=== PATIENT | female | born 1955 | race Caucasian/White ===

== ENCOUNTER 2016-11-03 07:09 | Inpatient (IN) | payer OTHER ==
[2016-10-25 09:30] VITALS: BMI 24.0
--- NOTE | 2016-10-25 10:02 | PAT Medication Instructions ---
Service Date Oct 25, 2016. Current Home Medication List Amitriptyline Hcl (Elavil), 50 MG PO HS Aripiprazole (Abilify), 15 MG PO QAM Aspirin (Aspirin), 81 MG PO QAM Atorvastatin Calcium (Lipitor), 80 MG PO HS Gabapentin (Neurontin), 400 MG PO BID Ibuprofen (Motrin), 800 MG PO TID Lamotrigine (Lamictal), 200 MG PO HS Levothyroxine Sodium (Levothyroxine Sodium), 1 TAB PO QAM Omeprazole (Prilosec), 40 MG PO QAM Pregabalin (Lyrica), 100 MG PO BID Sertraline (Zoloft), 200 MG PO QAM Medication Instructions For Your Scheduled Surgery - Instructions per surgeon: Aspirin (Aspirin), 81 MG PO QAM Ibuprofen (Motrin), 800 MG PO TID - Take the following medications the morning of surgery with a sip of water OTHERWISE NOTHING TO EAT OR DRINK AFTER MIDNIGHT: Levothyroxine Sodium (Levothyroxine Sodium), 1 TAB PO QAM Aripiprazole (Abilify), 15 MG PO QAM Gabapentin (Neurontin), 400 MG PO BID Omeprazole (Prilosec), 40 MG PO QAM Sertraline (Zoloft), 200 MG PO QAM Pregabalin (Lyrica), 100 MG PO BID - Take the following medications as scheduled the night before surgery: Amitriptyline Hcl (Elavil), 50 MG PO HS Atorvastatin Calcium (Lipitor), 80 MG PO HS Lamotrigine (Lamictal), 200 MG PO HS Gabapentin (Neurontin), 400 MG PO BID Pregabalin (Lyrica), 100 MG PO BID If you have any questions please call us at [phone] or [phone] or [phone]
[2016-10-25 11:10] LABS: URINE APPEARANCE CLEAR (CLEAR); URINE BILIRUBIN NEG (NEG); URINE COLOR YELLOW; URINE NITRITE NEG (NEG); URINE PH 5.5 (4.5-7.5); URINE SPECIFIC GRAVITY 1.007 (1.000-1.030); UROBILINOGEN NEG (NEG)
[2016-10-25 11:10] LABS: BUN/CREATININE RATIO 20.4 (10-20); CALCIUM 8.4 mg/dl (8.5-10.1); CREATININE 0.69 mg/dl (0.60-1.20); POTASSIUM 4.1 mmol/L (3.5-5.1)
[2016-10-25 11:18] LABS: MANUAL MICROSCOPIC REQUIRED? NO; REVIEW REQ? NO
--- NOTE | 2016-10-26 13:23 | HISTORY & PHYSICAL EXAMINATION ---
DATE OF ADMISSION: 11/03/2016 CHIEF COMPLAINT: Neck and bilateral shoulder pain. 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 She reports chronic axial neck pain, radiates from the shoulders down the arm and occasionally transient tingling in the hands. Imaging reveals no ongoing spinal cord compression, but revealed osteophyte formation and kyphosis in the previously operated area. She has been through years of conservative treatment including physical therapy, massage and epidural injections without any resolution of her symptoms. Quality of life is severely curtailed. She denies incontinence or current myelopathic symptoms. She denies any misti or overt weakness. PAST MEDICAL HISTORY: Arthritis, depression, fibromyalgia, high cholesterol, migraines, spinal stenosis, thyroid disease. PAST SURGICAL HISTORY: Cervical laminectomy C5 and C6, colonoscopy. ALLERGIES: None. SOCIAL HISTORY: The patient lives alone. She is a former alcohol user. Current smoker. FAMILY HISTORY: Notable for cancer, hypertension, high cholesterol, thyroid disease. REVIEW OF SYSTEMS: Notable for fatigue and subjective weakness. She denies chest pain, shortness of breath, dyspnea on exertion. She has a history of headaches, vertigo, as well as depression and insomnia. She denies any incontinence. MEDICATIONS: Refer on the list. PHYSICAL EXAMINATION: The patient stands 5 feet 5 inches tall, weighs 141 pounds, stands and ambulates without ataxia. She has normal affect. Answers questions appropriately. She has full cervical range of motion with mild discomfort on range of motion but a negative Lhermitte's. She has no cervical lymphadenopathy, thyromegaly. Cardiac auscultation reveals a regular rate and rhythm. Lungs are clear to auscultation bilaterally. Extremity evaluation reveals normal skin, full active range of motion of both upper extremities and palpable radial pulses. Neurologic exam reveals 5/5 strength in both upper extremities in all motor groups. Intact sensation to light touch in all distributions in the upper extremities and symmetric. Normal DTRs at biceps, triceps and brachioradialis. She has a negative Catalina's bilaterally. Lower extremities show no clonus. Posterior skin in the neck reveals midline scar. IMAGING: Cervical imaging including flexion, extension radiographs reveals well preserved flexibility with prior laminectomies noted in the lower cervical spine. With cervical extension she is able to actively restore normal cervical lordosis. There is no significant ongoing neurologic compression in the MRI. ASSESSMENT AND PLAN: The patient has neck pain due to post-laminectomy kyphosis and degenerative changes. We reviewed the ability of posterior stabilization and fusion to restore lordosis without osteotomy given her flexibility. Likely of neck pain improving was reviewed. She would like to proceed. I recommend C4-C7 posterior fusion with possible inclusion of C3 or T1 as needed based upon stability and alignment. The patient was agreeable to proceed, understanding that some axial neck pain may persist.
[2016-11-03] VITALS (9 sets, daily range): BP systolic 108–124; BP diastolic 70–83; PULSE 72–99; TEMP 36.6–36.9; O2SAT 92–98; Ht 165.1 cm; Wt 67.2 kg
[~2016-11-03] VITALS: Ht 165.1 cm; Wt 67.2 kg
[~2016-11-03 07:09] MED LIST: ABL/15 PO; AMT50 PO; ASPI-461 PO; ATOR80TA PO; CEFAZOLIN 2000 MG/60 ML D5W IV SCH; CeleBREX 200 MG CAP PO SCH; GABA1CAP5 PO; IBUP-1428 PO; LACTATED RINGER'S 1000ML 1,000 ML IV SCH; LAMO200T PO; LEVO88TA3 PO; PREG100C PO; PREGABALIN 75 MG CAP PO SCH; PRLSR20 PO; SERT-234 PO
[2016-11-03] MEDS ORDERED: FENTANYL CITRATE INJ 50 MCG/1 ML 2 ML VIAL ONE ×3 (08:19→10:44)
[2016-11-03] MEDS ORDERED: MIDAZOLAM HCL 1 MG/ML 2ML VIAL ONE (08:19)
[2016-11-03] MEDS ORDERED: REMIFENTANIL 1 MG VIAL ONE (08:20)
--- NOTE | 2016-11-03 08:42 | History & Physical Bridge Note ---
H&P Re-Evaluation Bridge Note: I have examined the patient, reviewed the History & Physical and in the interval since the performance of the History & Physical I have noted the following changes of clinical significance: No changes noted
[2016-11-03] MEDS ORDERED: THROMBIN 5000 UNITS KIT ONE (08:52)
[2016-11-03] MEDS ORDERED: THROMBIN FOR SOLN 20000 UNIT KIT ONE (08:52)
[2016-11-03] MEDS ORDERED: HEPARIN SOD (PORCINE) 1000 UNIT/ML 10 ML VIAL ONE (08:52)
[2016-11-03] MEDS ORDERED: BUPIVACAINE/EPINEPHRINE 0.25% 1:200,000 30 ML VIAL ONE (08:53)
[2016-11-03] MEDS ORDERED: BACITRACIN 50000 UNIT VIAL ONE (08:53)
[2016-11-03] MEDS ORDERED: HYDROmorphone INJ 2 MG/ML SYR/VIAL ONE ×3 (09:52→11:34)
[2016-11-03] MEDS ORDERED: EpHEDrine SULFATE INJ 50 MG/ML AMP IV PRN (10:15)
[2016-11-03] MEDS ORDERED: ONDANSETRON INJ 2 MG/ML 2 ML VIAL IV PRN ×2 (10:15→11:00)
[2016-11-03] MEDS ORDERED: ATROPINE SULFATE 0.1 MG/ML 5ML SYR IV PRN (10:15)
--- NOTE | 2016-11-03 10:43 | [facility] Post Operative Brief Note ---
Immediate Operative Summary Operative Date Nov 03, 2016. Pre-Operative Diagnosis Post Laminectomy Kyphosis Post-Operative Diagnosis same as preop Procedure(s) Performed C3-7 Posterior Cervical fusion with Instrumentation, use of Infuse, Spinal Cord Monitoring Surgeon DR.J. YU Visitor Services Technician Surgeon(s) Abdi PAPPAS PAC Estimated Blood Loss 40ml Findings dict Specimens NONE
[2016-11-03] MEDS ORDERED: LIDOCAINE HCL 2% 2 ML VIAL (20MG/ML) ONE (10:48)
[2016-11-03] MEDS ORDERED: SUCCINYLCHOLINE 100MG/5ML SYR IV ONE (10:48)
[2016-11-03] MEDS ORDERED: DEXAMETHASONE SOD INJ 4 MG/ML VIAL ONE (10:48)
[2016-11-03] MEDS ORDERED: ONDANSETRON INJ 2 MG/ML 2 ML VIAL ONE ×2 (10:48→10:49)
[2016-11-03] MEDS ORDERED: PROPOFOL IV EMULSION 10 MG/ML 20 ML VIAL IV ONE (10:48)
[2016-11-03] MEDS ORDERED: PHENYLEPHRINE 100MCG/ML 5ML SYR ONE (10:49)
[2016-11-03] MEDS ORDERED: EpHEDrine SULFATE 50MG/5ML SYR ONE (10:49)
[2016-11-03] MEDS ORDERED: ACETAMINOPHEN 325 MG TAB PO PRN (11:00)
[2016-11-03] MEDS ORDERED: LORAZEPAM 1 MG TAB PO PRN (11:00)
[2016-11-03] MEDS ORDERED: HYDROmorphone INJ 1 MG/ML SYR IV PRN (11:00)
[2016-11-03] MEDS ORDERED: LORAZEPAM INJ 1 MG in SYRINGE 0 ML IV PRN (11:00)
[2016-11-03] MEDS: FENTANYL CITRATE INJ 50 MCG/1 ML 2 ML VIAL IV PRN ×4 (11:10→11:25)
[2016-11-03] MEDS: HYDROmorphone INJ 1 MG/ML SYR IV PRN ×4 (11:32→11:47)
--- NOTE | 2016-11-03 11:39 | DIAGNOSTIC IMAGING REPORT ---
CERVICAL 2 OR 3 VIEWS CLINICAL HISTORY: C4-C7 ACDF COMPARISON STUDY: No previous studies for comparison. Fluoroscopy time: 7 seconds. FINDINGS: 2 fluoroscopic images of the cervical spine were obtained. These images demonstrate posterior fusion from C3 through C7. IMPRESSION: Fluoroscopic images demonstrate a C3-C7 posterior fusion. Electronically signed by: Simón Dunn M.D. 11/03/2016 11:37 AM Dictated Date/Time: 11/03/2016 11:36 AM
--- NOTE | 2016-11-03 12:04 | Anesthesiology Progress Note ---
Anesthesia Post Op Note Date & Time Nov 03, 2016 at 12:04 Vital Signs Pain Intensity: 4 Vital Signs Past 12 Hours Date Time Temp Pulse Resp B/P (MAP) Pulse Ox O2 Delivery O2 Flow Rate FiO2 11/03/16 11:55 97 16 134/94 95 Nasal Cannula 2 11/03/16 11:45 97 16 129/90 95 Nasal Cannula 2 11/03/16 11:35 96 16 147/99 97 Nasal Cannula 2 11/03/16 11:25 97 16 134/90 99 Oxymask 10 11/03/16 11:15 36.4 98 16 146/90 100 Oxymask 10 11/03/16 11:05 36.4 90 16 157/80 100 Oxymask 10 11/03/16 08:04 36.8 73 20 118/79 94 Room Air Notes Mental Status: alert / awake / arousable, participated in evaluation Pt Amnestic to Procedure: Yes Nausea / Vomiting: adequately controlled Pain: adequately controlled Airway Patency, RR, SpO2: stable & adequate BP & HR: stable & adequate Hydration State: stable & adequate Anesthetic Complications: no major complications apparent
[2016-11-03] MEDS: SODIUM CHLORIDE 0.9% 1000ML 1,000 ML IV SCH ×2 (13:37→23:04)
[2016-11-03] MEDS: OXYCODONE/ACETAMINOPHEN 5-325 TAB PO PRN ×3 (14:30→23:04)
[2016-11-03] MEDS: CEFAZOLIN IV 1,000 MG in DEXTROSE 5% 50ML 50 ML IV SCH (16:34)
[2016-11-03] MEDS: DEXAMETHASONE INJ 6 MG in SYRINGE 0 ML IV SCH (16:35)
[2016-11-03] MEDS: GABAPENTIN 400 MG CAP PO SCH (20:15)
[2016-11-03] MEDS: PREGABALIN 100 MG CAP PO SCH (20:15)
[2016-11-03] MEDS: ATORVASTATIN 40 MG TAB PO SCH (20:16)
[2016-11-03] MEDS: AMITRIPTYLINE HCL 50 MG TAB PO SCH (20:17)
[2016-11-04] MEDS: DEXAMETHASONE INJ 6 MG in SYRINGE 0 ML IV SCH ×2 (00:10→07:39)
[2016-11-04] MEDS: CEFAZOLIN IV 1,000 MG in DEXTROSE 5% 50ML 50 ML IV SCH ×2 (00:11→07:39)
[2016-11-04] MEDS: OXYCODONE/ACETAMINOPHEN 5-325 TAB PO PRN ×4 (03:00→20:43)
[2016-11-04 03:40] VITALS: BP 116/75; PULSE 72; TEMP 36.7; O2SAT 95
[2016-11-04] MEDS: LEVOTHYROXINE 88 MCG TAB PO SCH (05:36)
[2016-11-04 07:13] VITALS: BP 118/77; PULSE 68; TEMP 36.7; O2SAT 92
[2016-11-04] MEDS: SERTRALINE HCL 100 MG TAB PO SCH (08:31)
[2016-11-04] MEDS: PREGABALIN 100 MG CAP PO SCH ×2 (08:31→20:45)
[2016-11-04] MEDS: ARIPIprazole TAB 15 MG TAB PO SCH (08:31)
[2016-11-04] MEDS: GABAPENTIN 400 MG CAP PO SCH ×2 (08:31→20:43)
--- NOTE | 2016-11-04 10:26 | Anesthesiology Progress Note ---
Anesthesia Post Op Note Date & Time Nov 04, 2016 at 10:26 Vital Signs Vital Signs Past 12 Hours Date Time Temp Pulse Resp B/P (MAP) Pulse Ox O2 Delivery O2 Flow Rate FiO2 11/04/16 07:13 36.7 68 18 118/77 (91) 92 Room Air 11/04/16 07:10 Room Air 11/04/16 03:40 36.7 72 16 116/75 (89) 95 Room Air 11/03/16 23:07 36.7 72 16 111/72 (85) 92 Room Air Notes Mental Status: alert / awake / arousable, participated in evaluation Pt Amnestic to Procedure: Yes Nausea / Vomiting: adequately controlled Pain: adequately controlled Airway Patency, RR, SpO2: stable & adequate BP & HR: stable & adequate Hydration State: stable & adequate Anesthetic Complications: no major complications apparent
[2016-11-04 10:53] VITALS: BP 107/71; PULSE 61; TEMP 36.7; O2SAT 94
[2016-11-04] MEDS: SODIUM CHLORIDE 0.9% 1000ML 1,000 ML IV SCH (11:33)
--- NOTE | 2016-11-04 12:14 | Orthopedic Progress Note ---
Orthopedic Progress Note Date of Service Nov 04, 2016. Subjective Post OP Day: 1 Reports: feeling well, pain controlled w PO medications, Denies: complaints, chest pain, SOB, nausea / vomiting, light headedness, calf pain, using RETAIL AIDE Objective calves soft nontender, N/V intact, dressing C/D/I, A&O x3, hemovac drainage Date Time Temp Pulse Resp B/P (MAP) Pulse Ox O2 Delivery O2 Flow Rate FiO2 11/04/16 10:53 36.7 61 16 107/71 (83) 94 Room Air 11/04/16 07:13 36.7 68 18 118/77 (91) 92 Room Air 11/04/16 07:10 Room Air 11/04/16 03:40 36.7 72 16 116/75 (89) 95 Room Air 11/03/16 23:07 36.7 72 16 111/72 (85) 92 Room Air 11/03/16 20:04 36.9 78 16 108/70 (83) 95 Room Air 11/03/16 20:00 Room Air 11/03/16 15:25 36.7 89 16 117/76 (90) 96 Nasal Cannula 3.0 11/03/16 14:25 94 18 123/78 (93) 96 11/03/16 13:39 Nasal Cannula 4.0 11/03/16 13:30 36.6 89 18 122/82 (95) 98 Nasal Cannula 4.0 11/03/16 13:00 93 18 114/79 (91) 96 11/03/16 12:44 95 Nasal Cannula 4.0 11/03/16 12:20 36.9 99 16 124/83 (97) 96 Nasal Cannula 4.0 Assessment & Plan Assessment: stable cont drain d/c tomorrow
[2016-11-04] MEDS ORDERED: OXYC-57 PO (12:20)
--- NOTE | 2016-11-04 12:21 | Discharge Instructions ---
Discharge Instructions Date of Service Nov 04, 2016. Admission Reason for Admission: Cervical Spinal Stenosis Discharge Discharge Diagnosis / Problem: same Discharge Goals Goal(s): Decrease discomfort Activity Recommendations Activity Limitations: per Instructions/Follow-up section . Instructions / Follow-Up Instructions / Follow-Up ACTIVITY RECOMMENDATIONS: SELF CARE INSTRUCTIONS AFTER CERVICAL FUSIONS 1. No smoking. Smoking drastically decreases the chance of a solid fusion. 2. No bending, lifting more than 5 pounds, or twisting (roll like a log when turning in bed). 3. You may shower 3 days after surgery. Thoroughly dry wound. Do not soak in the tub. 4. Cervical collar: Must be worn at all times including sleeping. You may remove the brace only to bath, eat and if you are sitting in a recliner. 5. Please walk as much as you can for exercise. Gradually increase the distance that you walk as your endurance increases. SPECIAL CARE INSTRUCTIONS: VERY IMPORTANT TO READ AND REVIEW A. Do not take any anti-inflammatory medications (i.e. Indocin, Advil, Aspirin, Naprosyn, Aleve, Motrin, etc.) as these may inhibit the chance of a solid fusion. Tylenol is okay to take. C. Complications are uncommon, but please contact us if you have any signs or symptoms of: 1. wound infection (fever higher than 102.5 degrees F, redness, separation of wound, drainage, or increasing pain from the incision) 2. blood clots in legs (pain, swelling, redness and warmth in legs) 3. urinary tract infection (fever higher than 102.5 degrees, burning upon urination or increased frequency of urination) 4. nerve problems (inability to walk on your toes or heels, numbness, loss of bowel or bladder control) 5. any other symptoms that concern you. D. Please call the office at if you have any concerns or questions about your operation or recovery. MANAGING PAIN AFTER SPINAL SURGERY 1. Narcotic medication is intended for short-term use and will be provided for surgical pain. Surgical pain usually lasts for a period of 4-6 weeks. Narcotic medication includes Percocet, Vicodin, Darvocet, Tylenol #3 or Lortab. 2. Longer-term pain is more appropriately treated with non-narcotic medication such as Tylenol ES. 3. Muscle spasm is not appropriately treated with narcotics. Muscle relaxers such as Soma, Flexeril or Skelaxin can be used along with Tylenol ES. 4. Remember that we all live with some "aches and pains". This is not unusual or uncommon after an injury or as we get older. 5. We will provide appropriate medication within the normal guidelines of their prescribed use. We will also be very cautious and aware of potential abuse and extended duration of patients' medication needs. 6. Please allow 2-3 days to process refills. Prescriptions will not be mailed but must be picked up at the office. FOLLOW UP VISIT: Keep your scheduled follow-up appointment. Any questions, please call the office at . Current Hospital Diet Patient's current hospital diet: Regular Diet Discharge Diet Recommended Diet: Regular Diet Procedures Procedures Performed: C3-7 Posterior Cervical fusion with Instrumentation, use of Infuse, Spinal Cord Monitoring Pending Studies Studies pending at discharge: no Medical Emergencies . Who to Call and When: Medical Emergencies: If at any time you feel your situation is an emergency, please call 911 immediately. . Non-Emergent Contact Non-Emergency issues call your: Surgeon . "Provider Documentation" section prepared by Tamir Elizondo. . VTE Core Measure Inpt VTE Proph given/why not?: SCD's [place] Drug Monitoring Program Search Results: patient reviewed within database, no issues identified, see additional documentation (reviewed by ELISA during admission)
[2016-11-04 14:58] VITALS: BP 111/75; PULSE 66; TEMP 37; O2SAT 91
[2016-11-04] MEDS: ATORVASTATIN 40 MG TAB PO SCH (20:43)
[2016-11-04] MEDS: AMITRIPTYLINE HCL 50 MG TAB PO SCH (20:43)
[2016-11-04 23:07] VITALS: BP 119/78; PULSE 71; TEMP 36.5; O2SAT 93
[2016-11-05] MEDS: OXYCODONE/ACETAMINOPHEN 5-325 TAB PO PRN ×2 (05:34→12:35)
[2016-11-05] MEDS: LEVOTHYROXINE 88 MCG TAB PO SCH (05:34)
[2016-11-05 07:13] VITALS: BP 99/64; PULSE 62; TEMP 36.7; O2SAT 94
[2016-11-05] MEDS: GABAPENTIN 400 MG CAP PO SCH (08:57)
[2016-11-05] MEDS: PREGABALIN 100 MG CAP PO SCH (08:57)
[2016-11-05] MEDS: SERTRALINE HCL 100 MG TAB PO SCH (08:57)
[2016-11-05] MEDS: ARIPIprazole TAB 15 MG TAB PO SCH (08:57)
--- NOTE | 2016-11-05 09:19 | Discharge Summary ---
Orthopedic Discharge Summary Admission Date/Reason Nov 03, 2016 at 09:00 Cervical Spinal Stenosis. Discharge Date/Disposition Nov 05, 2016 Home Diagnosis Principal Diagnosis: same Procedure(s) Performed C3-7PSF Medication Reconciliation New Medications: Oxycodone/Acetaminophen 5MG/325MG (Percocet 5MG/325MG) Tab 1 TAB PO Q4H PRN for moderate pain (pain scale 4-6), #60 TAB PAIN Continued Medications: Amitriptyline Hcl (Elavil) 50 Mg Tab 50 MG PO HS, TAB Aripiprazole (Abilify) 15 Mg Tab 15 MG PO QAM, TAB Aspirin (Aspirin) 81 Mg Tab 81 MG PO QAM Atorvastatin Calcium (Lipitor) 80 Mg Tab 80 MG PO HS, TAB Gabapentin (Neurontin) 400 Mg Cap 400 MG PO BID, CAP Ibuprofen (Motrin) 800 Mg Tab 800 MG PO TID, TAB Lamotrigine (Lamictal) 200 Mg Tab 200 MG PO HS, TAB Levothyroxine Sodium (Levothyroxine Sodium) 88 Mcg Tab 1 TAB PO QAM for 90 Days, #90 TAB 3 Refills Omeprazole (Prilosec) 20 Mg Capcr 40 MG PO QAM, CAP Pregabalin (Lyrica) 100 Mg Cap 100 MG PO BID, CAP Sertraline (Zoloft) 100 Mg Tab 200 MG PO QAM, TAB Admission Physical Exam As per Admitting History & Physical. Hospital Course The patient was admitted for elective cervical surgery which was tolerated well. They were stable on the floor, had pain controlled, mobilized well, and remained neurologically stable. d/c d to home in stable condition. Discharge Instructions Please refer to the electronic Patient Visit Report (Discharge Instructions) for additional information.
[2016-11-05 12:19] VITALS: BP 99/64; PULSE 62; TEMP 36.7; O2SAT 94
== END 2016-11-05 13:08 | disposition home or self-care (01) | DRG 473 ==
LOC: C.ACU 07:09 → C.3E 09:00 → ENRESERV 11:26
PROVIDERS: ADMIT Orthopaedic Surgery Orthopaedic Surgery of the Spine; ATTEND Orthopaedic Surgery Orthopaedic Surgery of the Spine
PROC: 3E0V0GB Introduction of Recombinant Bone Morphogenetic Protein into Bones, Open Approach (ICD-10-PCS; principal; 2016-11-03 09:00)
PROC: 0RG20Z0 (ICD-10-PCS; principal; 2016-11-03 09:00)
DX: M96.3 Postlaminectomy kyphosis (principal); M48.02 Spinal stenosis, cervical region; M40.202 Unspecified kyphosis, cervical region; M47.892 Other spondylosis, cervical region; M19.90 Unspecified osteoarthritis, unspecified site; F32.9 Major depressive disorder, single episode, unspecified; E78.00 Pure hypercholesterolemia, unspecified; F17.210 Nicotine dependence, cigarettes, uncomplicated; M79.7 Fibromyalgia; G43.909 Migraine, unspecified, not intractable, without status migrainosus; E07.9 Disorder of thyroid, unspecified; G47.00 Insomnia, unspecified